=== PATIENT | male | born 1965 | race African-American/Black ===

== ENCOUNTER 2020-11-07 18:20 | Inpatient (IN) | payer OTHER ==
[~2020-11-07] VITALS: Ht 170.2 cm; Wt 70.1 kg
[~2020-11-07 18:20] MED LIST: NOCURR
[2020-11-07] MEDS ORDERED: ALBUTEROL SULFATE 5 MG/ML 20 ML NEB SOLN [BULK] NEB ONE (18:30)
[2020-11-07] MEDS ORDERED: IPRATROPIUM BROMIDE 0.5 MG/2.5 ML NEB SOLUTION NEB ONE (18:30)
[2020-11-07] MEDS ORDERED: DEXAMETHASONE SOD PHOS 4 MG/ML VIAL IVP ONE (18:30)
[2020-11-07] MEDS ORDERED: 0.9% SODIUM CHLORIDE 15 ML NEB SOLUTION NEB ONE (18:31)
[2020-11-07 18:52] LABS: SOURCE, BLOOD GAS ARTERIAL; TEMPERATURE, FAHRENHEIT, BG 98.6 FAHREN (96.0-98.6)
[2020-11-07 18:54] LABS: ABG A-A DIFF O2 138.2 mmHg (10-20.0); ABG BASE EXCESS -5.2 mmol/L (-2.0-3.0); ABG CARBOXYHEMOGLOBIN 0.6 % (0.0-1.5); ABG HCO3 19.3 mmol/L (22.0-26.0); ABG METHEMOGLOBIN 0.1 % (0.0-1.5); ABG OXYGEN CONTENT 21.4 mL/dL (15.0-23.0); ABG OXYGEN SATURATION 99.9 % (95.0-98.0); ABG OXYHEMOGLOBIN 99.2 % (94.0-100.0); ABG TOTAL HEMOGLOBIN 14.4 G/dL (12.0-18.0); PO2, ARTERIAL BG 505.9 mmHg (84.0-92.0)
[2020-11-07 18:55] LABS: ABG PCO2 69 mmHg (35-45); ABG PH 7.153 (7.35-7.450)
[2020-11-07 18:56] LABS: INSPIRATORY TIME, BG 0.9 SEC; O2 DEVICE,BLOOD GAS BIPAP (ROOM AIR); SITE, BLOOD GAS LFT RADIAL; SPONTANEOUS VT, BG 701 ml; VENT MODE, BG BIPAP (ROOM AIR)
[2020-11-07 19:34] LABS: BASOPHILS % (AUTO) 1.8 % (0.0-2.0); EOSINOPHILS % (AUTO) 6.9 % (1.0-6.0); HEMOGLOBIN 13.4 g/dL (13.5-17.5); LYMPHOCYTES # (AUTO) 4.3 K/uL (1.0-4.8); LYMPHOCYTES % (AUTO) 36.4 % (22.0-44.0); MEAN CORPUSCULAR HGB CONC 33.5 G/dL (31.0-37.0); MEAN CORPUSCULAR VOLUME 90 fL (80-100); MONOCYTES # (AUTO) 0.8 K/uL (0.1-1.0); MONOCYTES % (AUTO) 6.5 % (2.0-9.0); NEUTROPHILS # (AUTO) 5.7 K/uL (1.8-7.7); NEUTROPHILS % (AUTO) 48.4 % (40.0-70.0); PLATELET COUNT (AUTO) 378 K/uL (150-450); RED BLOOD CELL COUNT(AUTO) 4.47 MIL/uL (4.50-5.90); RED CELL DISTRIBUTION WIDTH 13.2 % (11.5-14.5)
[2020-11-07] MEDS ORDERED: LORazepam 2 MG/ML VIAL IVP ONE (19:45)
[2020-11-07 19:50] LABS: ABG A-A DIFF O2 52.5 mmHg (10-20.0); ABG BASE EXCESS -4.4 mmol/L (-2.0-3.0); ABG CARBOXYHEMOGLOBIN 0.4 % (0.0-1.5); ABG HCO3 20.4 mmol/L (22.0-26.0); ABG METHEMOGLOBIN 0.3 % (0.0-1.5); ABG OXYGEN CONTENT 20.5 mL/dL (15.0-23.0); ABG OXYGEN SATURATION 99.8 % (95.0-98.0); ABG OXYHEMOGLOBIN 99.1 % (94.0-100.0); ABG PCO2 55 mmHg (35-45); O2 DEVICE,BLOOD GAS BIPAP (ROOM AIR); PO2, ARTERIAL BG 387.7 mmHg (84.0-92.0); SITE, BLOOD GAS LFT RADIAL; SOURCE, BLOOD GAS ARTERIAL; SPONTANEOUS VT, BG 705 ml; TEMPERATURE, FAHRENHEIT, BG 98.6 FAHREN (96.0-98.6); VENT MODE, BG BIPAP (ROOM AIR)
[2020-11-07 19:51] LABS: INSPIRATORY TIME, BG 0.9 SEC
[2020-11-07 19:58] LABS: LACTIC ACID 1.1 mmol/L (0.4-2.0)
[2020-11-07 20:01] LABS: B-TYPE NATRIURETIC PEPTIDE 10 pg/mL (0-100)
[2020-11-07 20:02] LABS: D-DIMER 0.19 mg/L FEU (0.00-0.50); PROTHROMBIN TIME 10.3 SEC (9.4-11.6)
[2020-11-07] MEDS ORDERED: IPRAHFA IH (20:21)
[2020-11-07] MEDS ORDERED: AMLO-258 PO (20:21)
[2020-11-07] MEDS ORDERED: PROM6.2514 PO (20:21)
[2020-11-07] MEDS ORDERED: FLUT1BLS8 IH (20:21)
[2020-11-07] MEDS ORDERED: MONT-35 PO (20:21)
[2020-11-07] MEDS ORDERED: BENZ100C68 PO (20:27)
[2020-11-07 20:41] LABS: ANION GAP 14 mmol/L (8-16); CALCIUM, TOTAL 9.1 mg/dL (8.8-10.5); CARBON DIOXIDE 24 mmol/L (22-29); CHLORIDE 98 mmol/L (98-107); CREATININE 1.06 mg/dL (0.60-1.30); GLOMERULAR FILTR. RATE CALC > 60 mL/min (>60); GLUCOSE,RANDOM 158 mg/dL (70-110); POTASSIUM 4.1 mmol/L (3.5-5.1); SODIUM SERUM 136 mmol/L (136-145); UREA NITROGEN, BLOOD 17 mg/dL (7-18)
[2020-11-07 20:45] LABS: INFLUENZA TYPE A NEGATIVE FOR TYPE A (NEGATIVE); INFLUENZA TYPE B NEGATIVE FOR TYPE B (NEGATIVE)
[2020-11-07 21:06] LABS: ALANINE AMINOTRANSFERASE 54 U/L (12-78); ALBUMIN 4.8 g/dL (3.4-5.0); ALKALINE PHOSPHATASE 77 U/L (46-116); ASPARTATE AMINOTRANSFERASE 37 U/L (15-37); BILIRUBIN,TOTAL 0.3 mg/dL (0.1-1.0); C-REACTIVE PROTEIN QUANT 0.05 mg/dL (0.00-0.30); CREATINE KINASE, TOTAL ONLY 836 U/L (39-308); FERRITIN 353 ng/mL (26-388); LACTATE DEHYDROGENASE 259 U/L (85-227); TOTAL PROTEIN, SERUM 8.2 g/dL (6.4-8.2)
[2020-11-07] MEDS ORDERED: ACETAMINOPHEN 1000 MG/ISO-OSM 100 ML IV ONE (22:00)
[2020-11-07] MEDS ORDERED: ONDANSETRON HCL 4 MG/2 ML VIAL IVP PRN (23:30)
[2020-11-07] MEDS ORDERED: IPRATROPIUM BROMIDE 0.5 MG/2.5 ML NEB SOLUTION NEB PRN (23:30)
[2020-11-07] MEDS ORDERED: MORPHINE SULFATE 2 MG/ML SYRINGE IVP PRN (23:30)
[2020-11-07] MEDS ORDERED: ALBUTEROL SULFATE 2.5 MG/0.5 ML NEB SOLUTION NEB PRN (23:30)
[2020-11-08] MEDS: AZITHROMYCIN 500 MG/NS 250 ML IV SCH ×2 (00:15→23:59)
[2020-11-08] MEDS: HEPARIN SODIUM,PORCINE 5,000 UNITS/ML VIAL SQ SCH ×3 (00:15→18:02)
[2020-11-08] MEDS ORDERED: ALBUTEROL SULFATE/IPRATROPIUM 100-20 MCG/SPRAY 4 GM INHALER IH PRN (07:30)
[2020-11-08 08:11] LABS: ABG BASE EXCESS -1.3 mmol/L (-2.0-3.0); ABG CARBOXYHEMOGLOBIN 0.5 % (0.0-1.5); ABG HCO3 23.4 mmol/L (22.0-26.0); ABG METHEMOGLOBIN 0.3 % (0.0-1.5); ABG OXYGEN CONTENT 19.1 mL/dL (15.0-23.0); ABG OXYHEMOGLOBIN 97.2 % (94.0-100.0); ABG PCO2 42 mmHg (35-45); ABG PH 7.371 (7.35-7.450); ABG TOTAL HEMOGLOBIN 13.9 G/dL (12.0-18.0); PO2, ARTERIAL BG 104.6 mmHg (84.0-92.0); SOURCE, BLOOD GAS ARTERIAL; TEMPERATURE, FAHRENHEIT, BG 98.6 FAHREN (96.0-98.6)
[2020-11-08 08:13] LABS: O2 DEVICE,BLOOD GAS CANNULA (ROOM AIR); SITE, BLOOD GAS LFT RADIAL
[2020-11-08 08:22] LABS: BASOPHILS % (AUTO) 0.9 % (0.0-2.0); EOSINOPHILS % (AUTO) 0 % (1.0-6.0); HEMATOCRIT 38.5 % (41-53); HEMOGLOBIN 13.1 g/dL (13.5-17.5); LYMPHOCYTES # (AUTO) 0.9 K/uL (1.0-4.8); MEAN CORPUSCULAR HEMOGLOBIN 30.3 pg (26.0-34.0); MEAN CORPUSCULAR VOLUME 89 fL (80-100); MONOCYTES # (AUTO) 0.3 K/uL (0.1-1.0); MONOCYTES % (AUTO) 2.7 % (2.0-9.0); NEUTROPHILS # (AUTO) 9.1 K/uL (1.8-7.7); PLATELET COUNT (AUTO) 334 K/uL (150-450); RED BLOOD CELL COUNT(AUTO) 4.31 MIL/uL (4.50-5.90); RED CELL DISTRIBUTION WIDTH 13.1 % (11.5-14.5)
[2020-11-08 08:39] LABS: NEUTROPHILS % (AUTO) 87.4 % (40.0-70.0)
[2020-11-08 08:45] LABS: ANION GAP 11 mmol/L (8-16); CALCIUM, TOTAL 9.6 mg/dL (8.8-10.5); CARBON DIOXIDE 26 mmol/L (22-29); CHLORIDE 98 mmol/L (98-107); CREATININE 0.88 mg/dL (0.60-1.30); GLOMERULAR FILTR. RATE CALC > 60 mL/min (>60); GLUCOSE,RANDOM 143 mg/dL (70-110); POTASSIUM 4.2 mmol/L (3.5-5.1); SODIUM SERUM 135 mmol/L (136-145); UREA NITROGEN, BLOOD 11 mg/dL (7-18)
[2020-11-08] MEDS ORDERED: MethylPREDNISolone SOD SUCC 125 MG/2 ML VIAL IVP SCH (09:00)
[2020-11-08 09:09] LABS: ALANINE AMINOTRANSFERASE 53 U/L (12-78); ALBUMIN 4.4 g/dL (3.4-5.0); ALKALINE PHOSPHATASE 65 U/L (46-116); ASPARTATE AMINOTRANSFERASE 47 U/L (15-37); BILIRUBIN,TOTAL 0.6 mg/dL (0.1-1.0)
[2020-11-08] MEDS: MethylPREDNISolone SOD SUCC 125 MG/2 ML VIAL IVP SCH ×4 (09:09→23:59)
[2020-11-08 09:10] LABS: CREATINE KINASE, TOTAL ONLY 1392 U/L (39-308)
[2020-11-08] MEDS: ZINC SULFATE 220 MG CAPSULE PO SCH ×2 (09:10→20:35)
[2020-11-08] MEDS: ASCORBIC ACID 500 MG TABLET PO SCH ×2 (09:10→20:35)
[2020-11-08] MEDS: ALBUTEROL SULFATE/IPRATROPIUM 100-20 MCG/SPRAY 4 GM INHALER IH SCH ×3 (09:35→18:10)
[2020-11-08] MEDS: AmLODIPine BESYLATE 10 MG TABLET PO SCH (12:11)
[2020-11-08] MEDS: FAMOTIDINE 10 MG/ML 2 ML VIAL IVP SCH ×2 (12:12→20:34)
[2020-11-08] MEDS: SODIUM CHLORIDE 0.9% 1,000 ML IV SCH ×2 (12:18→22:14)
[2020-11-08] MEDS: ACETAMINOPHEN 325 MG TABLET PO PRN (15:26)
[2020-11-08 15:51] VITALS: BP 132/88
[2020-11-08 19:15] VITALS: BP 137/79
[2020-11-08 23:42] VITALS: BP 140/75
[2020-11-08] MEDS: BENZONATATE 100 MG CAPSULE PO PRN (23:58)
[2020-11-09] MEDS: HEPARIN SODIUM,PORCINE 5,000 UNITS/ML VIAL SQ SCH ×3 (00:02→16:14)
[2020-11-09] MEDS: ALBUTEROL SULFATE/IPRATROPIUM 100-20 MCG/SPRAY 4 GM INHALER IH SCH ×4 (00:09→18:08)
[2020-11-09 04:15] VITALS: BP 134/77
[2020-11-09] MEDS: MethylPREDNISolone SOD SUCC 125 MG/2 ML VIAL IVP SCH (06:03)
[2020-11-09] MEDS: BENZONATATE 100 MG CAPSULE PO PRN ×3 (06:07→22:18)
[2020-11-09] MEDS: SODIUM CHLORIDE 0.9% 1,000 ML IV SCH ×3 (06:22→19:51)
[2020-11-09 06:48] LABS: BASOPHILS % (AUTO) 1.2 % (0.0-2.0); EOSINOPHILS % (AUTO) 0 % (1.0-6.0); HEMATOCRIT 36.9 % (41-53); HEMOGLOBIN 12.4 g/dL (13.5-17.5); LYMPHOCYTES # (AUTO) 1.3 K/uL (1.0-4.8); LYMPHOCYTES % (AUTO) 10.7 % (22.0-44.0); MEAN CORPUSCULAR HEMOGLOBIN 30.1 pg (26.0-34.0); MEAN CORPUSCULAR HGB CONC 33.7 G/dL (31.0-37.0); MEAN CORPUSCULAR VOLUME 89 fL (80-100); MONOCYTES # (AUTO) 0.4 K/uL (0.1-1.0); MONOCYTES % (AUTO) 3.3 % (2.0-9.0); NEUTROPHILS # (AUTO) 10.2 K/uL (1.8-7.7); NEUTROPHILS % (AUTO) 84.8 % (40.0-70.0); PLATELET COUNT (AUTO) 326 K/uL (150-450); RED BLOOD CELL COUNT(AUTO) 4.13 MIL/uL (4.50-5.90); RED CELL DISTRIBUTION WIDTH 13.3 % (11.5-14.5)
[2020-11-09 07:25] LABS: ALANINE AMINOTRANSFERASE 55 U/L (12-78); ALBUMIN 3.8 g/dL (3.4-5.0); ALKALINE PHOSPHATASE 53 U/L (46-116); ANION GAP 9 mmol/L (8-16); ASPARTATE AMINOTRANSFERASE 44 U/L (15-37); BILIRUBIN,TOTAL 0.4 mg/dL (0.1-1.0); CARBON DIOXIDE 26 mmol/L (22-29); CHLORIDE 103 mmol/L (98-107); CREATININE 0.81 mg/dL (0.60-1.30); GLOMERULAR FILTR. RATE CALC > 60 mL/min (>60); GLUCOSE,RANDOM 158 mg/dL (70-110); POTASSIUM 3.8 mmol/L (3.5-5.1); SODIUM SERUM 138 mmol/L (136-145); TOTAL PROTEIN, SERUM 6.8 g/dL (6.4-8.2); UREA NITROGEN, BLOOD 13 mg/dL (7-18)
[2020-11-09 07:28] LABS: CREATINE KINASE, TOTAL ONLY 1279 U/L (39-308)
[2020-11-09 08:01] VITALS: BP 140/75
[2020-11-09] MEDS: AmLODIPine BESYLATE 10 MG TABLET PO SCH (08:49)
[2020-11-09] MEDS: ZINC SULFATE 220 MG CAPSULE PO SCH ×2 (08:49→21:07)
[2020-11-09] MEDS: ASCORBIC ACID 500 MG TABLET PO SCH ×2 (08:49→21:07)
[2020-11-09 11:22] VITALS: BP 150/80
[2020-11-09] MEDS: MethylPREDNISolone SOD SUCC 40 MG/ML VIAL IVP SCH ×2 (12:26→18:09)
[2020-11-09] MEDS: FAMOTIDINE 10 MG/ML 2 ML VIAL IVP SCH ×2 (12:27→21:09)
[2020-11-09 15:44] VITALS: BP 150/84
[2020-11-09 19:40] VITALS: BP 140/73
[2020-11-09] MEDS ORDERED: SODIUM CHLORIDE 0.9% 250 ML IV ONE (22:04)
[2020-11-09 23:52] VITALS: BP 136/74
[2020-11-10] MEDS: HEPARIN SODIUM,PORCINE 5,000 UNITS/ML VIAL SQ SCH ×2 (00:47→08:08)
[2020-11-10] MEDS: MethylPREDNISolone SOD SUCC 40 MG/ML VIAL IVP SCH ×2 (00:47→06:20)
[2020-11-10] MEDS: AZITHROMYCIN 500 MG/NS 250 ML IV SCH (00:51)
[2020-11-10] MEDS: ALBUTEROL SULFATE/IPRATROPIUM 100-20 MCG/SPRAY 4 GM INHALER IH SCH ×3 (01:00→12:00)
[2020-11-10] MEDS: ACETAMINOPHEN 325 MG TABLET PO PRN (01:52)
[2020-11-10 03:35] VITALS: BP 143/70
[2020-11-10] MEDS: SODIUM CHLORIDE 0.9% 1,000 ML IV SCH ×2 (06:20→10:55)
[2020-11-10] MEDS: BENZONATATE 100 MG CAPSULE PO PRN (06:38)
[2020-11-10 06:54] LABS: BASOPHILS % (AUTO) 0.6 % (0.0-2.0); EOSINOPHILS % (AUTO) 0.5 % (1.0-6.0); HEMATOCRIT 35.9 % (41-53); HEMOGLOBIN 12.3 g/dL (13.5-17.5); LYMPHOCYTES # (AUTO) 0.7 K/uL (1.0-4.8); MEAN CORPUSCULAR HEMOGLOBIN 30.1 pg (26.0-34.0); MEAN CORPUSCULAR HGB CONC 34.1 G/dL (31.0-37.0); MEAN CORPUSCULAR VOLUME 88 fL (80-100); MONOCYTES # (AUTO) 0.4 K/uL (0.1-1.0); NEUTROPHILS # (AUTO) 12.4 K/uL (1.8-7.7); PLATELET COUNT (AUTO) 317 K/uL (150-450); RED BLOOD CELL COUNT(AUTO) 4.07 MIL/uL (4.50-5.90); RED CELL DISTRIBUTION WIDTH 13.2 % (11.5-14.5)
[2020-11-10 07:16] LABS: NEUTROPHILS % (AUTO) 90.9 % (40.0-70.0)
[2020-11-10 07:23] VITALS: BP 140/73
[2020-11-10 07:48] LABS: ALANINE AMINOTRANSFERASE 51 U/L (12-78); ALBUMIN 3.5 g/dL (3.4-5.0); ALKALINE PHOSPHATASE 49 U/L (46-116); ANION GAP 7 mmol/L (8-16); ASPARTATE AMINOTRANSFERASE 38 U/L (15-37); BILIRUBIN,TOTAL 0.3 mg/dL (0.1-1.0); CALCIUM, TOTAL 8.7 mg/dL (8.8-10.5); CARBON DIOXIDE 28 mmol/L (22-29); CHLORIDE 105 mmol/L (98-107); CREATINE KINASE, TOTAL ONLY 776 U/L (39-308); CREATININE 0.88 mg/dL (0.60-1.30); GLOMERULAR FILTR. RATE CALC > 60 mL/min (>60); GLUCOSE,RANDOM 158 mg/dL (70-110); POTASSIUM 3.6 mmol/L (3.5-5.1); SODIUM SERUM 140 mmol/L (136-145); TOTAL PROTEIN, SERUM 6.4 g/dL (6.4-8.2); UREA NITROGEN, BLOOD 15 mg/dL (7-18)
[2020-11-10] MEDS: ASCORBIC ACID 500 MG TABLET PO SCH (08:08)
[2020-11-10] MEDS: ZINC SULFATE 220 MG CAPSULE PO SCH (08:08)
[2020-11-10] MEDS: AmLODIPine BESYLATE 10 MG TABLET PO SCH (08:08)
[2020-11-10] MEDS: FAMOTIDINE 10 MG/ML 2 ML VIAL IVP SCH (08:08)
[2020-11-10 11:33] VITALS: BP 143/72
[2020-11-10] MEDS ORDERED: MethylPREDNISolone SOD SUCC 125 MG/2 ML VIAL IVP ONE (13:00)
[2020-11-10] MEDS ORDERED: ASCO500 PO (13:05)
[2020-11-10] MEDS ORDERED: IPRA4AER IH (13:05)
[2020-11-10] MEDS ORDERED: ZINC220C14 PO (13:06)
[2020-11-10] MEDS ORDERED: ACET-2247 PO (13:07)
[2020-11-10] MEDS ORDERED: METH4TAB3 PO (13:08)
[2020-11-10] MEDS ORDERED: FAMO20 PO (13:08)
== END 2020-11-10 14:15 | disposition home or self-care (01) | DRG 189 ==
LOC: EMS 18:20 → 5N 11-08 15:12
PROVIDERS: ADMIT Internal Medicine; ATTEND Internal Medicine
PROC: 5A09357 Assistance with Respiratory Ventilation, Less than 24 Consecutive Hours, Continuous Positive Airway Pressure (ICD-10-PCS; principal; 2020-11-08)
DX: J96.01 Acute respiratory failure with hypoxia (principal); J44.1 Chronic obstructive pulmonary disease with (acute) exacerbation; M62.82 Rhabdomyolysis; J96.02 Acute respiratory failure with hypercapnia; I10 Essential (primary) hypertension; R73.9 Hyperglycemia, unspecified; Z20.822 Contact with and (suspected) exposure to COVID-19; R74.02 Elevation of levels of lactic acid dehydrogenase [LDH]; M54.9 Dorsalgia, unspecified
CPT/HCPCS: 36600; 82728; 82805; 83036; 83605; 83615; 83735; 84145; 85379; 85384; 86140; 87040; 87426; 87804; 93005; 94640; 94644; 94660; 99291; J0131; J0456; J1100; J1644; J2060; J2270; J2920; J2930; J3490; J7030; J7050; 36415-L1; 36415-TC; 71045-TC; J7611; J7613; U0003

== ENCOUNTER 2020-12-02 01:06 | Emergency (ER) | payer OTHER ==
[~2020-12-02] VITALS: Ht 175.3 cm; Wt 72.7 kg
[~2020-12-02 01:06] MED LIST changes: +ACET-2247 PO; +AMLO-258 PO; +ASCO500 PO; +BENZ100C68 PO; +FAMO20 PO; +FLUT1BLS8 IH; +IPRA4AER IH; +IPRAHFA IH; +METH4TAB3 PO; +MONT-35 PO; -NOCURR; +ZINC220C14 PO
[2020-12-02 02:20] VITALS: BP 152/80
== END 2020-12-02 02:50 | disposition home or self-care (01) ==
LOC: EMS 01:07
DX: R06.02 Shortness of breath (principal); I10 Essential (primary) hypertension; J45.909 Unspecified asthma, uncomplicated; Z76.5 Malingerer [conscious simulation]; Z72.89 Other problems related to lifestyle
CPT/HCPCS: 99283